=== PATIENT | female | born 1995 | race African-American/Black ===

== ENCOUNTER 2021-01-18 05:25 | Emergency (ER) | payer MEDICAID ==
[~2021-01-18] VITALS: Ht 167.6 cm; Wt 60.0 kg
[2021-01-18] MEDS ORDERED: ACETAMINOPHEN 325MG TABLET PO ONE (10:45)
[2021-01-18] MEDS ORDERED: CEPHALEXIN 250MG CAPSULE PO ONE (10:45)
[2021-01-18] MEDS ORDERED: ACET-2708 MT (10:51)
[2021-01-18] MEDS ORDERED: CEPH500T MT (10:51)
[2021-01-18 11:06] VITALS: BP 96/66
== END 2021-01-18 11:07 | disposition home or self-care (01) ==
LOC: ER 06:00
DX: S01.81XA Laceration without foreign body of other part of head, initial encounter (principal); X58.XXXA Exposure to other specified factors, initial encounter; Y93.89 Activity, other specified; Y92.89 Other specified places as the place of occurrence of the external cause; Y99.8 Other external cause status; F41.9 Anxiety disorder, unspecified; I10 Essential (primary) hypertension; F17.290 Nicotine dependence, other tobacco product, uncomplicated; F12.10 Cannabis abuse, uncomplicated
CPT/HCPCS: 81025; 99283

== ENCOUNTER 2021-03-14 06:04 | Emergency (ER) | payer MEDICAID ==
[~2021-03-14] VITALS: Ht 167.6 cm; Wt 51.0 kg
[~2021-03-14 06:04] MED LIST: ACET-2708 MT; CEPH500T MT
[2021-03-14] MEDS ORDERED: FLUORESCEIN SODIUM 1MG/STRIP BOTHEYE ONE (08:45)
[2021-03-14] MEDS ORDERED: ACETAMINOPHEN 325MG TABLET PO ONE (09:00)
[2021-03-14 10:12] LABS: HEMATOCRIT. 29.9 % (36.0-48.0); HEMOGLOBIN. 9.7 g/dL (12.0-16.0); MEAN CORPUSCULAR HEMOGLOBIN 25.9 pg (28.0-32.0); MEAN CORPUSCULAR VOLUME 79.9 fL (81.0-99.0); MEAN PLATELET VOLUME 8.6 fl (7.4-10.4); PLATELET 273 x1000/uL (130-400); RED BLOOD CELL COUNT 3.75 mill/uL (4.2-5.4)
[2021-03-14 10:19] VITALS: BP 112/69
[2021-03-14 10:21] LABS: CHLORIDE 109 mEq/L (98-107)
[2021-03-14 10:35] LABS: HCG SCREEN NEGATIVE
[2021-03-14] MEDS ORDERED: IBUP-2028 MT (10:39)
[2021-03-14 11:28] LABS: PLATELET ESTIMATE NORMAL
== END 2021-03-14 11:41 | disposition left against medical advice (07) ==
LOC: ER 06:11
DX: S00.83XA Contusion of other part of head, initial encounter (principal); H11.31 Conjunctival hemorrhage, right eye; Y07.499 Other family member, perpetrator of maltreatment and neglect; E86.0 Dehydration; D64.9 Anemia, unspecified; Y00.XXXA Assault by blunt object, initial encounter; Y93.89 Activity, other specified; Y92.89 Other specified places as the place of occurrence of the external cause
CPT/HCPCS: 36415; 70486; 80053; 81025; 84703; 85025; 99284

== ENCOUNTER 2021-12-15 18:40 | Emergency (ER) | payer MEDICAID ==
[~2021-12-15] VITALS: Ht 167.6 cm; Wt 54.0 kg
[~2021-12-15 18:40] MED LIST changes: +IBUP-2028 MT
[2021-12-15 18:45] VITALS: BP 108/58
== END 2021-12-15 21:05 | disposition left against medical advice (07) ==
LOC: ER 18:40
DX: R10.9 Unspecified abdominal pain (principal); I10 Essential (primary) hypertension; Z90.49 Acquired absence of other specified parts of digestive tract; Z98.890 Other specified postprocedural states
CPT/HCPCS: 99283